=== PATIENT | female | born 1985 | race Caucasian/White ===

== ENCOUNTER 2021-11-24 02:56 | Emergency (ER) | payer OTHER, SELFPAY | END 2021-11-24 03:55 | disposition home or self-care (01) | LOC: NAV ERS 02:56 | DX: M25.531 Pain in right wrist (principal); F17.210 Nicotine dependence, cigarettes, uncomplicated; V92.09XA Drowning and submersion due to fall off unspecified watercraft, initial encounter | CPT/HCPCS: 29125 ==